=== PATIENT | male | born 2005 | race Caucasian/White ===

== ENCOUNTER 2025-09-07 06:29 | Emergency (ER) | payer OTHER ==
[~2025-09-07] VITALS: Ht 172.7 cm; Wt 50.0 kg
[2025-09-07 07:51] LABS: BASOPHILS % 0.3 % (0.0-2.0); EOSINOPHILS % 0.7 % (0.0-5.0); HEMATOCRIT. 44.2 % (42.0-52.0); HEMOGLOBIN. 14.2 g/dL (14.0-18.0); LYMPHOCYTES % 9.4 % (20.0-50.0); MEAN PLATELET VOLUME 8.9 fl (7.4-10.4); MONOCYTES % 4.3 % (2.0-8.0); NEUTROPHILS % 85.3 % (40.0-76.0); PLATELET 187 x1000/uL (130-400); RED BLOOD CELL COUNT 4.64 mill/uL (4.7-6.1); RED CELL DISTRIBUTION WIDTH 14.8 % (11.6-14.6)
[2025-09-07] MEDS: MORPHINE SULFATE 4 MG/ML INJ (FOR IV/IM USE) IV ONE (07:53)
[2025-09-07] MEDS: LEVETIRACETAM 500MG PREMIX 100 ML IV ONE (07:54)
[2025-09-07 08:04] LABS: CREATININE 0.6 mg/dL (0.6-1.3); ETHANOL BLOOD < 10 mg/dL (<10); UREA NITROGEN BLOOD 9 mg/dL (9-23)
[2025-09-07 08:06] LABS: ASPARTATE AMINOTRANSFERASE 29 IU/L (<34); BILIRUBIN DIRECT 0.1 mg/dL (<=3.0); BILIRUBIN TOTAL 0.6 mg/dL (0.1-1.0); PROTEIN TOTAL 6.5 g/dL (6.0-8.3)
[2025-09-07] MEDS: LAMOTRIGINE 150MG TABLET PO ONE (08:29)
[2025-09-07 09:15] VITALS: O2SAT 99
[2025-09-07] MEDS: KETAMINE HCL 50 MG/ML 10ML IV ONE (09:38)
[2025-09-07 11:00] VITALS: BP 109/68; PULSE 86; RESP 22; TEMP 36.5; O2SAT 99
== END 2025-09-07 11:20 | disposition home or self-care (01) ==
LOC: ER 06:29
DX: S43.014A Anterior dislocation of right humerus, initial encounter (principal); G40.909 Epilepsy, unspecified, not intractable, without status epilepticus; F84.0 Autistic disorder; Z88.0 Allergy status to penicillin; Z79.899 Other long term (current) drug therapy; X58.XXXA Exposure to other specified factors, initial encounter; Y93.89 Activity, other specified; Y92.89 Other specified places as the place of occurrence of the external cause; Y99.8 Other external cause status
CPT/HCPCS: 80076; 80048; 80320; 83735; 85025; 36415; 73030; 93005; 23650; 96365; 96375; 99152; 99285; J1953; J3490; J2270; A4565; G0480